=== PATIENT | male | born 1955 | race African-American/Black ===

== ENCOUNTER 2020-07-27 20:01 | Emergency (ER) | payer OTHER ==
[2020-07-27] MEDS ORDERED: Acetaminophen 500 MG TAB ONE (20:56)
[2020-07-27] MEDS ORDERED: Piperacillin/Tazobactam 4.5 GM VIAL ONE (20:57)
[2020-07-27 21:20] LABS: #Eosinphils 0.2 10x3/uL (0.0-0.5); #Monocytes 1.2 10x3/uL (0.0-1.1); #Neutrophils 9.6 10x3/uL (1.5-8.4); %Basophils 0.2 % (0.0-2.0); %Eosinophils 1.5 % (0.0-6.0); %Lymphocytes 9.2 % (18.0-47.0); %Monocytes 9.7 % (0.0-10.0); Hemoglobin 11.5 g/dL (13.5-17.5); Mean Corpuscular HGB CONC 33.2 g/dL (32.0-36.0); Mean Corpuscular Volume 78.1 fl (81.2-95.1); Mean Platelet Volume 9.2 fl (7.4-10.4); Platelet Count 293 10x3/uL (150-450); Red Blood Cell (RBC) Count 4.43 10x6/uL (4.32-5.72); White Blood Cell (WBC) Count 12.2 10x3/uL (3.5-10.5)
[2020-07-27 21:30] LABS: ALT (SGPT) 18 U/L (8-55); AST (SGOT) 15 U/L (5-34); Albumin 3.8 g/dL (3.4-4.8); Alkaline Phosphatase 71 U/L (40-110); Anion Gap 12 mmol/L (10-20); BUN (Urea Nitrogen) 17 mg/dL (8.4-25.7); Bilirubin, Total 0.3 mg/dL (0.2-1.2); Calc. Creatinine Clearance 0 mL/min (70-130); Calcium 8.9 mg/dL (7.8-10.44); Carbon Dioxide 27 mmol/L (23-31); Chloride 104 mmol/L (98-107); Glucose 106 mg/dL (80-115); Potassium 4.2 mmol/L (3.5-5.1); Protein, Total 7.8 g/dL (5.8-8.1); Sodium 139 mmol/L (136-145)
[2020-07-28] MEDS ORDERED: Sulfameth/Trimethoprim DS 800-160mg TAB ONE (00:21)
== END 2020-07-28 00:50 ==
LOC: CSHERS 20:01
DX: S31.829A Unspecified open wound of left buttock, initial encounter (principal); E11.9 Type 2 diabetes mellitus without complications; E03.9 Hypothyroidism, unspecified; I10 Essential (primary) hypertension; M19.90 Unspecified osteoarthritis, unspecified site; X58.XXXA Exposure to other specified factors, initial encounter
CPT/HCPCS: 36415; 80053; 83605; 85025; 87040; 96365; 96366; 96367; J2543; J3370

== ENCOUNTER 2021-03-28 23:07 | Inpatient (IN) | payer OTHER ==
[2021-03-28] MEDS ORDERED: Cefepime 2 GM VIAL ONE (23:47)
[2021-03-29 00:35] LABS: #Neutrophils 13.1 10x3/uL (1.5-8.4); %Basophils 0.2 % (0.0-2.0); %Eosinophils 0.1 % (0.0-6.0); %Lymphocytes 9.2 % (18.0-47.0); %Monocytes 12.1 % (0.0-10.0); %Neutrophils 77.9 % (40.0-75.0); Mean Corpuscular HGB CONC 32.6 g/dL (32.0-36.0); Mean Corpuscular Volume 79.7 fl (81.2-95.1); Mean Platelet Volume 10.2 fl (7.4-10.4); Platelet Count 284 10x3/uL (150-450); RBC Distribution Width 15.3 % (11.5-14.5); Red Blood Cell (RBC) Count 4.62 10x6/uL (4.32-5.72); White Blood Cell (WBC) Count 16.8 10x3/uL (3.5-10.5)
[2021-03-29 00:41] LABS: ALT (SGPT) 20 U/L (8-55); AST (SGOT) 13 U/L (5-34); Alkaline Phosphatase 107 U/L (40-110); Anion Gap 14 mmol/L (10-20); BUN (Urea Nitrogen) 18 mg/dL (8.4-25.7); Bilirubin, Total 0.9 mg/dL (0.2-1.2); CK (CPK) 191 U/L (30-200); Calc. Creatinine Clearance 0 mL/min (70-130); Calcium 8.9 mg/dL (7.8-10.44); Carbon Dioxide 25 mmol/L (23-31); Chloride 102 mmol/L (98-107); Globulin 3.3 g/dL (2.4-3.5); Glucose 167 mg/dL (80-115); Magnesium 1.9 mg/dL (1.6-2.6); Potassium 3.8 mmol/L (3.5-5.1); Protein, Total 7.3 g/dL (5.8-8.1); Sodium 137 mmol/L (136-145)
[2021-03-29 02:47] LABS: Bilirubin Neg (Negative); Blood, Urine Negative (Negative); Clarity Clear (Clear); Glucose, Urine (Dipstick) Normal (Negative); Ketone, Urine Negative (Negative); Leukocyte Negative (Negative); Nitrite Negative (Negative); Protein, Urine (Dipstick) Negative (Neg-Trace); Urobilinogen Normal mg/dL (Less than 2)
[2021-03-29] MEDS ORDERED: Guaifenesin DM 100-10/5 ML UDCUP PO PRN (04:41)
[2021-03-29] MEDS ORDERED: Senokot S 8.6-50 MG TAB PO PRN (04:41)
[2021-03-29] MEDS ORDERED: Ondansetron PF 4 MG/2 ML Vial IVP PRN (04:41)
[2021-03-29] MEDS ORDERED: Calcium Carbonate 500 MG ChewTAB PO PRN (04:41)
[2021-03-29] MEDS ORDERED: HYDROcodone/Acetaminophen 5/325 mg Tablet PO PRN (04:41)
[2021-03-29] MEDS ORDERED: Dextrose 50% Abboject 50 ML SYRINGE SLOW IVP PRN (04:44)
[2021-03-29] MEDS ORDERED: Dextrose 5% in Water 1,000 ML IV PRN (04:44)
[2021-03-29] MEDS ORDERED: HumaLOG 300 UNITS/3 ML VIAL SC PRN (04:44)
[2021-03-29] MEDS ORDERED: Lactated Ringer's 1,000 ML IV SCH (05:00)
[2021-03-29 05:54] LABS: SARS-CoV-2 NAA Rapid Test Not Detected (NotDetected)
[2021-03-29] MEDS: Levothyroxine Sodium 50 MCG TAB PO SCH (06:46)
[2021-03-29] MEDS ORDERED: Ondansetron ODT 4 MG TAB PO PRN (06:47)
[2021-03-29] MEDS ORDERED: GUAIFENESIN SF SOLN 200 MG/10 ML UDCUP PO PRN (06:47)
[2021-03-29] MEDS ORDERED: Loratadine 10 MG TAB PO PRN (06:47)
[2021-03-29] MEDS ORDERED: Sodium Chloride 0.65% Nasal 44 ML BOT EA NARE PRN (06:47)
[2021-03-29] MEDS ORDERED: Artificial Tear Sol 15 ML BOT EA EYE PRN (06:47)
[2021-03-29] MEDS ORDERED: Hydrocerin (Eucerin) Cream 120 gm Jar TOP PRN (06:47)
[2021-03-29] MEDS ORDERED: Bisacodyl 5 MG TAB PO PRN (06:47)
[2021-03-29] MEDS ORDERED: Loperamide HCl 2 MG CAP PO PRN (06:47)
[2021-03-29] MEDS ORDERED: Melatonin 3 MG TAB PO PRN (06:48)
[2021-03-29 07:00] VITALS: BMI 34.0
[2021-03-29] MEDS: Enoxaparin Sodium 40 MG/0.4 ML SYRINGE SC SCH ×2 (08:51→08:56)
[2021-03-29] MEDS: Multivitamin W/ Minerals 1 TAB PO SCH (08:51)
[2021-03-29] MEDS: Zinc Sulfate 220 MG CAP PO SCH (08:51)
[2021-03-29] MEDS: Aspirin 81 mg Enteric Coated Tablet PO SCH (08:51)
[2021-03-29] MEDS: Ascorbic Acid 500 mg Chewable Tablet PO SCH (08:51)
[2021-03-29] MEDS: Carvedilol 3.125 MG TAB PO SCH ×2 (08:51→16:09)
[2021-03-29] MEDS: hydrALAZINE 20 MG/ML VIAL SLOW IVP PRN ×2 (10:02→16:50)
[2021-03-29] MEDS: Cefepime 2 GM in Sodium Chloride 0.9% 100 ML IVPB SCH (13:10)
[2021-03-29] MEDS: Vancomycin HCl 1 GM in Sodium Chloride 0.9% 250 ML 250 ML IVPB SCH (14:58)
[2021-03-29] MEDS: Acetaminophen 325 MG TAB PO PRN (16:50)
[2021-03-29] MEDS: Atorvastatin Calcium 20 MG TAB PO SCH (21:26)
[2021-03-30] MEDS: Cefepime 2 GM in Sodium Chloride 0.9% 100 ML IVPB SCH ×2 (03:12→12:35)
[2021-03-30] MEDS: Vancomycin HCl 1 GM in Sodium Chloride 0.9% 250 ML 250 ML IVPB SCH ×2 (03:12→13:58)
[2021-03-30] MEDS: Levothyroxine Sodium 50 MCG TAB PO SCH (06:06)
[2021-03-30 06:36] LABS: #Eosinphils 0.1 10x3/uL (0.0-0.5); #Monocytes 1.9 10x3/uL (0.0-1.1); #Neutrophils 9.5 10x3/uL (1.5-8.4); %Basophils 0.2 % (0.0-2.0); %Eosinophils 0.7 % (0.0-6.0); %Lymphocytes 11.7 % (18.0-47.0); %Monocytes 14.4 % (0.0-10.0); %Neutrophils 72.6 % (40.0-75.0); Hemoglobin 11.5 g/dL (13.5-17.5); Mean Corpuscular HGB CONC 33.7 g/dL (32.0-36.0); Mean Corpuscular Hemoglobin 26.9 pg (27.0-33.0); Mean Corpuscular Volume 79.7 fl (81.2-95.1); Mean Platelet Volume 10.9 fl (7.4-10.4); Platelet Count 252 10x3/uL (150-450); RBC Distribution Width 15.3 % (11.5-14.5); Red Blood Cell (RBC) Count 4.28 10x6/uL (4.32-5.72)
[2021-03-30 06:37] LABS: Phosphorus 2.3 mg/dL (2.3-4.7)
[2021-03-30 06:41] LABS: Anion Gap 12 mmol/L (10-20); BUN (Urea Nitrogen) 10 mg/dL (8.4-25.7); Calc. Creatinine Clearance 120 mL/min (70-130); Calcium 8.8 mg/dL (7.8-10.44); Carbon Dioxide 22 mmol/L (23-31); Chloride 106 mmol/L (98-107); Glucose 154 mg/dL (80-115); Iron 13 ug/dL (65-175); Iron Binding Capacity, Total 273 mcg/dL (261-462); Potassium 3.3 mmol/L (3.5-5.1); Sodium 137 mmol/L (136-145)
[2021-03-30] MEDS ORDERED: Potassium Chloride 20 MEQ TAB PO SCH (07:30)
[2021-03-30] MEDS: Multivitamin W/ Minerals 1 TAB PO SCH (09:02)
[2021-03-30] MEDS: Carvedilol 3.125 MG TAB PO SCH ×2 (09:02→17:44)
[2021-03-30] MEDS: Zinc Sulfate 220 MG CAP PO SCH (09:02)
[2021-03-30] MEDS: Enoxaparin Sodium 40 MG/0.4 ML SYRINGE SC SCH (09:02)
[2021-03-30] MEDS: Aspirin 81 mg Enteric Coated Tablet PO SCH (09:02)
[2021-03-30] MEDS: Ascorbic Acid 500 mg Chewable Tablet PO SCH (09:02)
[2021-03-30 11:23] LABS: Hemoglobin A1c 7.4 % (4.0-6.0)
[2021-03-30] MEDS: hydrALAZINE 20 MG/ML VIAL SLOW IVP PRN (12:48)
[2021-03-30] MEDS: Atorvastatin Calcium 20 MG TAB PO SCH (20:15)
[2021-03-31] MEDS: Cefepime 2 GM in Sodium Chloride 0.9% 100 ML IVPB SCH ×2 (00:04→12:14)
[2021-03-31 01:44] LABS: Vancomycin, Trough 8.5 ug/mL
[2021-03-31] MEDS: Vancomycin HCl 1 GM in Sodium Chloride 0.9% 250 ML 250 ML IVPB SCH (02:32)
[2021-03-31] MEDS: VANCOMYCIN 1.25 GM/250 ML BAG 1.25 GM in Premix Bag 1 BAG IVPB SCH ×2 (02:44→13:28)
[2021-03-31] MEDS: Levothyroxine Sodium 50 MCG TAB PO SCH (05:24)
[2021-03-31 05:43] LABS: Anion Gap 11 mmol/L (10-20); BUN (Urea Nitrogen) 9 mg/dL (8.4-25.7); Calc. Creatinine Clearance 136 mL/min (70-130); Calcium 8.7 mg/dL (7.8-10.44); Carbon Dioxide 23 mmol/L (23-31); Chloride 105 mmol/L (98-107); Glucose 183 mg/dL (80-115); Potassium 3.3 mmol/L (3.5-5.1); Sodium 136 mmol/L (136-145)
[2021-03-31 05:51] LABS: #Eosinphils 0.2 10x3/uL (0.0-0.5); #Monocytes 1.6 10x3/uL (0.0-1.1); #Neutrophils 7.9 10x3/uL (1.5-8.4); %Basophils 0.2 % (0.0-2.0); %Eosinophils 1.5 % (0.0-6.0); %Lymphocytes 13.1 % (18.0-47.0); %Monocytes 14.3 % (0.0-10.0); %Neutrophils 70.6 % (40.0-75.0); Hemoglobin 11.3 g/dL (13.5-17.5); Mean Corpuscular HGB CONC 33.6 g/dL (32.0-36.0); Mean Corpuscular Hemoglobin 26.7 pg (27.0-33.0); Mean Corpuscular Volume 79.2 fl (81.2-95.1); Mean Platelet Volume 10.3 fl (7.4-10.4); Platelet Count 243 10x3/uL (150-450); Red Blood Cell (RBC) Count 4.24 10x6/uL (4.32-5.72); White Blood Cell (WBC) Count 11.1 10x3/uL (3.5-10.5)
[2021-03-31] MEDS: Multivitamin W/ Minerals 1 TAB PO SCH (09:00)
[2021-03-31] MEDS: hydrALAZINE 20 MG/ML VIAL SLOW IVP PRN (09:00)
[2021-03-31] MEDS: Zinc Sulfate 220 MG CAP PO SCH (09:00)
[2021-03-31] MEDS: Ascorbic Acid 500 mg Chewable Tablet PO SCH (09:00)
[2021-03-31] MEDS: Carvedilol 3.125 MG TAB PO SCH ×2 (09:00→16:14)
[2021-03-31] MEDS: Enoxaparin Sodium 40 MG/0.4 ML SYRINGE SC SCH (09:01)
[2021-03-31] MEDS: Aspirin 81 mg Enteric Coated Tablet PO SCH (09:01)
[2021-03-31] MEDS: Atorvastatin Calcium 20 MG TAB PO SCH (21:14)
[2021-03-31] MEDS: Cepastat Lozenges 1 LOZ PO PRN (21:23)
[2021-03-31] MEDS: Acetaminophen 325 MG TAB PO PRN (23:48)
[2021-04-01] MEDS: Cefepime 2 GM in Sodium Chloride 0.9% 100 ML IVPB SCH ×2 (00:19→11:56)
[2021-04-01] MEDS: VANCOMYCIN 1.25 GM/250 ML BAG 1.25 GM in Premix Bag 1 BAG IVPB SCH ×2 (01:32→14:59)
[2021-04-01] MEDS: Levothyroxine Sodium 50 MCG TAB PO SCH (05:01)
[2021-04-01] MEDS: Enoxaparin Sodium 40 MG/0.4 ML SYRINGE SC SCH (07:19)
[2021-04-01] MEDS: Carvedilol 3.125 MG TAB PO SCH ×2 (07:19→16:18)
[2021-04-01] MEDS: Multivitamin W/ Minerals 1 TAB PO SCH (07:20)
[2021-04-01] MEDS: Aspirin 81 mg Enteric Coated Tablet PO SCH (07:21)
[2021-04-01] MEDS: Zinc Sulfate 220 MG CAP PO SCH (07:21)
[2021-04-01] MEDS: Ascorbic Acid 500 mg Chewable Tablet PO SCH (07:21)
[2021-04-01 14:21] LABS: Vancomycin, Trough 13.8 ug/mL
[2021-04-01] MEDS: Cepastat Lozenges 1 LOZ PO PRN (21:33)
[2021-04-01] MEDS: Atorvastatin Calcium 20 MG TAB PO SCH (21:33)
[2021-04-02] MEDS: hydrALAZINE 20 MG/ML VIAL SLOW IVP PRN (00:43)
[2021-04-02] MEDS: Cefepime 2 GM in Sodium Chloride 0.9% 100 ML IVPB SCH ×2 (01:00→12:27)
[2021-04-02] MEDS: VANCOMYCIN 1.25 GM/250 ML BAG 1.25 GM in Premix Bag 1 BAG IVPB SCH (02:08)
[2021-04-02] MEDS: Levothyroxine Sodium 50 MCG TAB PO SCH (05:11)
[2021-04-02 05:37] LABS: #Eosinphils 0.3 10x3/uL (0.0-0.5); #Monocytes 1.3 10x3/uL (0.0-1.1); %Basophils 0.3 % (0.0-2.0); %Eosinophils 2.7 % (0.0-6.0); %Lymphocytes 18.2 % (18.0-47.0); %Monocytes 13.5 % (0.0-10.0); Hemoglobin 11.4 g/dL (13.5-17.5); Mean Corpuscular HGB CONC 32.4 g/dL (32.0-36.0); Mean Corpuscular Hemoglobin 26.3 pg (27.0-33.0); Mean Corpuscular Volume 81.3 fl (81.2-95.1); Mean Platelet Volume 10.9 fl (7.4-10.4); Platelet Count 274 10x3/uL (150-450); Red Blood Cell (RBC) Count 4.33 10x6/uL (4.32-5.72); White Blood Cell (WBC) Count 9.3 10x3/uL (3.5-10.5)
[2021-04-02 05:41] LABS: Anion Gap 14 mmol/L (10-20); BUN (Urea Nitrogen) 13 mg/dL (8.4-25.7); Calc. Creatinine Clearance 136 mL/min (70-130); Carbon Dioxide 23 mmol/L (23-31); Chloride 107 mmol/L (98-107); Glucose 144 mg/dL (80-115); Potassium 3.9 mmol/L (3.5-5.1); Sodium 140 mmol/L (136-145)
[2021-04-02 08:22] VITALS: TEMP 98
[2021-04-02] MEDS: Carvedilol 3.125 MG TAB PO SCH (08:29)
[2021-04-02] MEDS: Ascorbic Acid 500 mg Chewable Tablet PO SCH (08:29)
[2021-04-02] MEDS: Multivitamin W/ Minerals 1 TAB PO SCH (08:29)
[2021-04-02] MEDS: Enoxaparin Sodium 40 MG/0.4 ML SYRINGE SC SCH (08:29)
[2021-04-02] MEDS: Aspirin 81 mg Enteric Coated Tablet PO SCH (08:29)
[2021-04-02] MEDS: Zinc Sulfate 220 MG CAP PO SCH (08:29)
[2021-04-02 11:43] VITALS: BP 177/82
[2021-04-02] MEDS ORDERED: glipiZIDE 5 MG TAB PO SCH (16:30)
[2021-04-02] MEDS ORDERED: metFORMIN 500 MG TAB PO SCH (17:00)
== END 2021-04-02 12:51 | DRG 872 ==
LOC: CSHERS 23:07 → CSHTELE 03-29 06:07
PROVIDERS: ADMIT Student in an Organized Health Care Education/Training Program; ATTEND Family Medicine
DX: A41.9 Sepsis, unspecified organism (principal); I10 Essential (primary) hypertension; E03.9 Hypothyroidism, unspecified; M19.90 Unspecified osteoarthritis, unspecified site; D50.9 Iron deficiency anemia, unspecified; L89.322 Pressure ulcer of left buttock, stage 2; E11.65 Type 2 diabetes mellitus with hyperglycemia; E78.2 Mixed hyperlipidemia; Z20.822 Contact with and (suspected) exposure to COVID-19; E66.9 Obesity, unspecified; Z68.34 Body mass index [BMI] 34.0-34.9, adult; Z79.899 Other long term (current) drug therapy
CPT/HCPCS: 0240U; 36415; 36416; 71045; 80048; 80053; 80202; 81003; 82550; 82728; 83036; 83540; 83550; 83605; 83735; 84100; 84145; 84443; 84484; 85025; 85652; 86140; 87040; 87086; 87149; 93005; 94760; 96365; 96366; 96367; J0360; J0692; J1650; J1815; J3370; J3490; J7050; J7120